=== PATIENT | female | born 1960 | race Caucasian/White ===

== ENCOUNTER 2016-07-14 08:53 | Emergency (ER) | payer OTHER ==
--- NOTE | 2016-07-14 09:33 | DIAGNOSTIC IMAGING REPORT ---
PROCEDURE: CT HEAD WITHOUT CONTRAST INDICATION: REPORTED LEFT SIDED WEAKNESS TECHNIQUE: Axial CT images were acquired through the head. Coronal and sagittal reformations were created. COMPARISON: None. FINDINGS: No intracranial hemorrhage or extraaxial fluid collections. Ventricles are normal in size, shape and position. There is no mass, mass effect or midline shift. The resendez-white matter differentiation is normal. There is no edema. The calvarium is intact. The paranasal sinuses and mastoid air cells are normally aerated. The extracranial soft tissues and orbits are normal. IMPRESSION: 1. No CT evidence of acute intracranial process. 2. Findings discussed with Dr. Garcia at 09:[address] scans at this facility use dose modulation, iterative reconstruction, and/or weight-based dosing when appropriate to reduce radiation dose to as low as reasonably achievable.
--- NOTE | 2016-07-14 10:05 | DIAGNOSTIC IMAGING REPORT ---
PROCEDURE: XR CHEST 1 VIEW INDICATION: COUGH AND LUE WEAKNESS TECHNIQUE: Portable AP view 09:14 a.m. COMPARISON: None. FINDINGS: Lungs are clear. Heart and mediastinum are normal. Thorax is normal. IMPRESSION: 1. Negative chest.
--- NOTE | 2016-07-14 12:28 | ED CLINICAL REPORT ---
Clinical Report - Physicians/Mid Levels [facility] [address] [place] [address] 07/14/2016 8:57 Patient: ESAU QUIÑONES Time Seen: 0905; initial patient contact. Arrived- By ambulance. Historian- patient. HISTORY OF PRESENT ILLNESS Chief Complaint: WEAKNESS. This started just prior to arrival and is still present (persistent). It was gradual in onset and has been constant. The patient has had weakness. No numbness, tingling, impaired speech or swallowing or visual disturbance. No recent fall. No difficulty walking. At its maximum deficit described as mild. When seen in the E.D., deficit described as mild. No dizziness, altered mental status, seizure or blackouts. Usually is alert and oriented X3 and has normal mobility. Similar symptoms previously: None. Recent medical care: Not recently seen/assessed. REVIEW OF SYSTEMS No fever, nausea or vomiting. She has had sputum production, difficulty breathing, a sore throat, a cough and neck pain. All systems otherwise negative, except as recorded above. PAST HISTORY ( COPD - Chronic Obstructive Pulmonary Disease. Depression. SURGERIES: Appendectomy. Hysterectomy. Carpal Tunnel Surgery. Breast Sugery.). SOCIAL HISTORY Current every day smoker. No alcohol use or drug use. ADDITIONAL NOTES The nursing notes have been reviewed with agreement regarding the chief complaint, PMH and patient medications and allergies. PHYSICAL EXAM Appearance: Alert. No acute distress. Head: Head atraumatic. Eyes: Pupils equal, round and reactive to light. ENT: Normal ENT inspection. Airway intact. Pharynx normal. Neck: Mild acute decrease in ROM secondary to pain. Moderate muscle spasm of the left posterior neck. Moderate soft tissue tenderness in the left upper, mid and lower neck area. No vertebral tenderness. No vertebral step-off. CVS: Normal heart rate and rhythm. Heart sounds normal. Respiratory: Mild respiratory distress with accessory muscle use and retractions. Mildly decreased air movement bilaterally. Expiratory moderate bilateral wheezes present. No rales or rhonchi. Abdomen: Soft and nontender. No organomegaly. The bowel sounds are not abnormal. Skin: Skin warm and dry. Normal skin color. No rash. Extremities: No calf tenderness. No lower extremity edema. Neuro: Alert. Oriented X 3. Mood/affect normal. Speech normal. Cranial nerves normal (as tested). No cerebellar findings. No motor deficit. No sensory deficit. LABS, X-RAYS, AND EKG EKG: EKG time: (923). Normal sinus rhythm. Rate: 89. Normal P waves. Normal KAMINI. Normal QRS complex. Normal axis. Normal ST and T waves, QT and QTc. Prior EKG unavailable. The study has been interpreted contemporaneously by me. The study has been independently viewed by me. The EKG appears to be a good tracing. Interpretation time: 09. Chest X-ray: No acute disease. Moderate hyperinflation present on the right and left with flattening of the diaphragm. Consistent with COPD. No infiltrate. Views: AP. Technique: good. The X-rays were independently viewed by me and interpreted contemporaneously by me. Prior films were not available for comparison. Interpretation time: 10:26. CT Head: (No CT evidence of acute intracranial process.). Head CT performed without contrast. Prior studies were not available for comparison. The study was interpreted by the radiologist and discussed with the radiologist. Interpretation time: 10:27. Laboratory Tests: CBC w Diff: (MYNOR: 07/14/2016 09:03) ( MsgRcvd 07/14/2016 09:10) Final results Test Result Flag Units (Reference) WHITE BLOOD COUNT 12.0 H K/uL (4.5-11.5) RED BLOOD COUNT 4.89 M/uL (4.00-5.20) HEMOGLOBIN 14.1 gm/dL (12.0-16.0) HEMATOCRIT 42.0 % (36.0-46.0) MEAN CELL VOLUME 86 fL (80-100) MEAN CORPUSCULAR HGB 29 pg (26-34) MEAN CORPUSCULAR HGB CONC 34 g/dL (31-37) RED CELL DISTRIBUTION WIDTH 14.3 % (11.6-14.8) PLATELET COUNT 289 K/uL (150-400) NEUTROPHIL % 68.3 % (50-75) LYMPH % 19.8 L % (25-40) MONO % 11.2 % (3-14) EOSINOPHIL % 0.5 % (0-4) BASOPHIL % 0.2 % (0-2) PT with INR: (MYNOR: 07/14/2016 09:03) ( MsgRcvd 07/14/2016 09:22) Final results Test Result Flag Units (Reference) INR 0.9 (0.8-1.2) Low Intensity Therapy: INR 1.5-2.0 PT range 18.5-23.1Mod.Intensity Therapy: INR 2.0-3.0 PT range 23.1-31.5High Intensity Therapy: INR 2.5-3.5 PT range 27.4-35.5High Intensity Therapy 2: INR 3.0-4.0 PT range 31.5-39.3 APTT 31 SECONDS (24-34) FIBRINOGEN 608 H mg/dL (193-455) D-DIMER QUANTITATIVE 0.47 ug/mLFEU (0.27-0.52) The primary value of this quantitative assay relates toits negative predictive value (i.e. exclusion) of pulmonaryembolism/deep vein thrombosis/DIC.Elevated levels of d-dimer may also occur with:, age, cancer, inflammation, liver disease,post-op, infection, hematoma, coronary disease, peripheralarteriopathy, bleeding disorders and thrombolytic treatment.Results should be correlated with other clinical andradiological data.Testing Methodology: Latex Immunoassay CMP: (MYNOR: 07/14/2016 09:03) ( MsgRcvd 07/14/2016 09:38) Final results Test Result Flag Units (Reference) GLUCOSE 115 H mg/dL (70-110) BUN 16 mg/dL (7-18) CREATININE 0.6 mg/dL (0.6-1.3) Estimated GFR >60 mL/min Estimated GFR- >60 mL/min Note: Persistent reduction over 3 months in eGFR<60 mL/min/1.73 m2 defines CKD. Patients with eGFR values>=60 mL/min/1.73 m2 may also have CKD if evidence ofpersistent proteinuria. Additional information may be foundat [email or web address]. SODIUM 140 mmol/L (136-145) POTASSIUM 3.7 mmol/L (3.5-5.1) CHLORIDE 101 mmol/L (98-107) CARBON DIOXIDE 28 mmol/L (21-32) CALCIUM 9.3 mg/dL (8.5-10.1) TOTAL PROTEIN 7.9 g/dL (6.4-8.2) ALBUMIN 3.6 g/dL (3.3-5.0) BILIRUBIN, TOTAL 0.3 mg/dL (0.0-1.0) ALKALINE PHOSPHATASE 134 H U/L (46-116) AST (SGOT) 13 L U/L (15-37) ALT (SGPT) 15 U/L (12-78) TROPONIN I <0.05 ng/mL (0.00-1.5) TROPONIN REFERENCE RANGE:<0.1 NEGATIVE0.1-1.5 INDETERMINANT>1.5 POSITIVE . PROGRESS AND PROCEDURES Course of Care: 12:26 07/14/16. Pt feeling markedly better. States her O2 levels stay between 88 and 90 % normally. She is followed by pulm. Disposition: Discharged home in good and improved condition. Condition: good. CLINICAL IMPRESSION Acute exacerbation of COPD. Muscle strain of the neck. INSTRUCTIONS Do not smoke. Seek medical help to quit smoking. Your Current Medications: CONTINUE TAKING THE FOLLOWING MEDICATIONS: Albuterol Sulfate HFA Inhalation. Symbicort Inhalation. Tudorza Pressair Inhalation. Venlafaxine HCl Oral : 225 mg daily. Prescription Medications: Albuterol 0.083% Inhalation Solution: inhale 1 unit dose (3 mL) via nebulizer every 4 hours as needed for wheezing, difficulty breathing or shortness of breath. Dispense fifty (50) units. No refill. Levaquin 500 mg: take 1 tab orally every day for 4 days. No refills. Substitution is permissible. (Start on 07/15/16) Baclofen 10 mg: take 1 orally every 8 hours. Dispense twenty (20). No refills. Prednisone 20 mg: take 2 orally every day for 4 days. Dispense sufficient quantity. No refills. (Start on 07/15/16) Follow-up: Follow up with your doctor in about two days. Call for an appointment. Screening today revealed the patient's blood pressure to be in the normal range. (Electronically signed by Woodrow Garcia Dr. 07/14/2016 12:31)
--- NOTE | 2016-07-14 12:28 | ED NURSING NOTES ---
Clinical Report - Nurses [facility] [address] [place] [address] 07/14/2016 8:57 Patient: ESAU QUIÑONES TRIAGE Triage time 08:59. Acuity: LEVEL 3. Chief Complaint: WEAKNESS. 08:59 07/14/16. 08:59 07/14/16. Alert. No acute distress. ( Left arm weakness, pt states she has has had left neck pain. Pts states that pt has had a "cold" and possible flu exposure.). SEPSIS SCREEN: Sepsis Screen. Negative (no infection suspected/documented). DANN COMA SCORE: [place] Coma Scale: 15- eyes open spontaneously (4); best verbal response- oriented x 4 (5); best motor response- obeys commands (6). --09:22 Sidney Spivey R.N. 09:00 07/14/16. BP: 118/93. HR: 100. RR: 18. O2 saturation: 92% on room air. Temp: 98 F (oral). Pain level now: 01/24. --09:22 Sidney Spivey R.N. Weight: 59.1 kg measured. --08:59 Sidney Spivey R.N.. Height/Length: 61 inches Measured. BMI: 24.6. --08:57 Sidney Spivey R.N. Medications Symbicort Inhalation. --09:18 Sidney Spivey R.N. Albuterol Sulfate HFA Inhalation. --09:18 Sidney Spivey R.N. Tudorza Pressair Inhalation. --09:49 Sidney Spivey R.N. Venlafaxine HCl Oral 225 mg, daily. --09:50 Sidney Spivey R.N. Medication/allergy information source: the patient. --09:22 Sidney Spivey R.N. Allergies None. --09:18 Sidney Spivey R.N. History Arrived by private vehicle. Historian: patient. Accompanied by family. Primary physician (CAROLINE). ( Left arm Weakness). 08:59 07/14/16. This started today. Onset. (0530). She has had a headache and weakness of the left arm. No recent fall, impaired speech or trouble walking. 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 PAST MEDICAL HX: Immunizations: up-to-date. SOCIAL HX: Current every day light tobacco smoker (cigarette)- less than 1/2 a pack per day. No alcohol use or drug use. No infectious disease exposure. ABUSE ASSESSMENT: No report of abuse. FALL RISK ASSESSMENT: Fall risk assessment completed. No fall risk identified. NUTRITIONAL RISK ASSESSMENT: The nutritional risk assessment revealed no deficiencies. FUNCTIONAL ASSESSMENT: Functional assessment: no impairments noted. LEARNING NEEDS ASSESSMENT: The learning needs assessment revealed no barriers. SKIN INTEGRITY ASSESSMENT: Skin integrity risk assessment completed. No skin integrity risk identified. --09:22 Sidney Spivey R.N. PROBLEMS: COPD - Chronic Obstructive Pulmonary Disease. --09:10 Sidney Spivey R.N. Depression. --09:51 Sidney Spivey R.N. ADDITIONAL SURGERIES: Appendectomy. Hysterectomy. --09:19 Sidney Spivey R.N. Carpal Tunnel Surgery. --09:19 Sidney Spivey R.N. Breast Sugery. --09:21 Sidney Spivey R.N. Assessment 08:59 07/14/16. --09:22 Sidney Spivey R.N. Interventions 08:59 07/14/16. 08:59 07/14/16. ID and allergy band on patient. To treatment room. --09:22 Sidney Spivey R.N. PHYSICAL ASSESSMENT late entry -09:00. GENERAL / NEURO / PSYCH: NIH Stroke Scale: score 0. 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 Level of Consciousness: alert (0). LOC Questions: both (0). LOC Commands: both (0). Best gaze: normal (0). Visual field loss: none (0). Facial palsy: normal (0). Motor arm: no drift right arm (0) and no drift left arm (0). Motor leg: no drift right leg (0) and no drift left leg (0). Limb ataxia: none (0). Sensory loss: none (0). Aphasia: none (0). Dysarthria: normal (0). Extinction and inattention: none (0). --09:15 Sidney Spivey R.N. late entry -09:05. To room via wheelchair. GENERAL / NEURO / PSYCH: Awake. Oriented X 4. Alert. Appears in no acute distress. [place] Coma Scale: 15- eyes open spontaneously (4); best verbal response- oriented x 4 (5); best motor response- obeys commands (6). Speech normal. Mood/affect normal. ( Slight left talent sourcing specialist weakness compared to right talent sourcing specialist). RESPIRATORY: Respirations not labored. SKIN: Skin is warm and dry. --09:11 Sidney Spivey R.N. 09:11 07/14/16. Baseline functional status: usually alert, oriented x4 and cooperative. Verbal response: usually clear and appropriate. --09:11 Sidney Spivey R.N. NURSING PROGRESS NOTES 08:59 07/14/2016 Site #1 started via IV in the right antecubital space with an 18g angiocath, with aseptic technique and good blood return. Blood drawn: rainbow set. Labeled in the presence of the patient and sent to the lab. Saline lock flushed with 10 mL saline (by Yebhi). --09:09 Sidney Spivey R.N. 09:02 07/14/16. ( Pt to CT). --09:02 Sidney Spivey R.N. 09:00. The plan of care for this patient has been created. Monitoring of patient in place. Patient gowned. Head of bed elevated. Reassurance given. Two patient identifiers checked. Call light placed in reach. Side rails up x 2. Bed placed in lowest position. Brakes of bed on. Brakes of chair on. --09:12 Sidney Spivey R.N. 09:12 07/14/16. ( at bedside). --09:12 Sidney Spivey R.N. 09:12 07/14/16. Family informed about reason for wait and about plan of care. --09:12 Sidney Spivey R.N. 09:16 07/14/16. Patient returned from CT by stretcher with tech. (X-ray completed in radiology department). --09:16 Sidney Spivey R.N. 09:20 07/14/16. Finger stick glucose: 112 mg/dL; ordered; performed by nurse. --09:20 Sidney Spivey R.N. 09:23 07/14/16. EKG time: (923). EKG was ordered, performed by a tech and shown to the ED physician. --09:23 Sidney Spivey R.N. 09:26 07/14/16. Cardiac rhythm: sinus tachycardia; (101). --09:26 Sidney Spivey R.N. 09:36 07/14/2016 Duoneb (Ipratropium-Albuterol) Neb [place] 1 unit dose given. Given by the respiratory therapist. --09:36 Rene Whittaker 09:43 07/14/2016 Levaquin (Levofloxacin) PO 500 mg given. Allergies verified and confirmed 5 rights. --09:48 Sidney Spivey R.N. 09:43 07/14/2016 Prednisone PO 40 mg given. Allergies verified and confirmed 5 rights. --09:48 Sidney Spivey R.N. 09:49 07/14/16. Cardiac rhythm: normal sinus rhythm. --09:49 Sidney Spivey R.N. 09:48 07/14/16. BP: 133/88. HR: 98. RR: 16. O2 saturation: 93% on room air. --09:49 Sindey Spivey R.N. 10:18 07/14/2016 Valium (Diazepam) IVP 2.5 mg given over 2 minute(s) via site #1. Allergies verified, confirmed 5 rights and sedative warning given to the patient. IV patency established. IV site checked: no pain, redness, or swelling. IV flushed thoroughly pre- and post-medication administration. IVP given by RN. --10:18 Sidney Spivey R.N. 10:07/14/16. Patient and family informed about reason for wait and about plan of care. --10:31 Sidney Spivye R.N. 10:07/14/16. Reassessment after medication administered. She reports no complaints, she is calm and she has had no adverse reaction. Overall patient status is improved- she states feels better. --10:31 Sidney Spivey R.N. 10:58 07/14/2016 Valium (Diazepam) IVP 2.5 mg given over 2 minute(s) via site #1. Allergies verified, confirmed 5 rights and sedative warning given to the patient. IV patency established. IV site checked: no pain, redness, or swelling. IV flushed thoroughly pre- and post-medication administration. IVP given by RN. --10:58 Sidney Spivey R.N. 10:58 07/14/16. BP: 130/75. HR: 100. RR: 18. O2 saturation: 91% on room air. --10:59 Sidney Spivey R.N. 10:59 07/14/16. --10:59 Sidney Spivey R.N. 10:59 07/14/16. Cardiac rhythm: sinus tachycardia. --10:59 Sidney Spivey R.N. 10:59 07/14/16. Patient and family informed about reason for wait and about plan of care. --10:59 Sidney Spivey R.N. 10:59 07/14/16. Patient waiting for lab results and disposition. --10:59 Sidney Spivey R.N. <<[facility] ENTRY-- 11:40 07/14/2016 Duoneb (Ipratropium-Albuterol) Neb TX Nebulizer 1 unit dose given. Given by the nurse. Allergies verified and confirmed 5 rights. --11:42 Cher Escamilla R.N. --END STRIKE>> Other. --11:42 Cher Escamilla R.N. 11:40 07/14/2016 Duoneb (Ipratropium-Albuterol) Neb TX Nebulizer 1 unit dose given. Given by the nurse. Allergies verified and confirmed 5 rights. (see previous entry (this is a duplicate)). --11:42 Cher Escamilla R.N. 11:41 07/14/2016 Duoneb (Ipratropium-Albuterol) Neb TX Nebulizer 1 unit dose given. Given by the nurse. Allergies verified and confirmed 5 rights. --11:41 Cher Escamilla R.N. 12:15 07/14/16. Cardiac rhythm: sinus tachycardia. --12:15 Sidney Spivey R.N. 12:15 07/14/16. BP: 100/79. HR: 100 (regular). RR: 20. O2 saturation: 90% on room air. --12:15 Sidney Spivey R.N. 12:15 07/14/16. Patient and family informed about reason for wait and about plan of care. Patient waiting for disposition and (Monitoring oxygen sats). --12:15 Sidney Sipvey R.N. DISPOSITION / DISCHARGE 12:35 07/14/2016 Site #1 removed upon discharge. Catheter intact. Bandage applied. --12:45 Lucía Urban R.N. Departure time: 1235. ( MD notified of discharge vs including spO2.). No learning barriers present. Discharge instructions provided and reviewed with the patient. Reviewed medication(s) side effects, precautions, dosing and course information. Prescription(s) given to the patient. Patient verbalized understanding. Written instructions provided in [place]. The patient was discharged by the physician. She was discharged home and accompanied by spouse. She left the Emergency Department ambulatory and via private vehicle. Spouse driving. --12:46 Lucía Urban R.N. 12:44 07/14/16. BP: 118/68. HR: 98. RR: 13. O2 saturation: 89% on room air. Temp: 98.1 F. Pain level now 4/10. --12:46 Lucía Urban R.N. Locked/Released at 07/14/2016 19:18 by Sidney Spivey R.N.
--- NOTE | 2016-07-14 12:28 | ED NURSING NOTES ---
Clinical Report - Nurs[facility] [address] [place] [address] 07/14/2016 8:57 Patient: ESAU QUIÑONES TRIAGE Triage time 08:59. Acuity: LEVEL 3. Chief Complaint: WEAKNESS. 08:59 07/14/16. 08:59 07/14/16. Alert. No acute distress. ( Left arm weakness, pt states she has has had left neck pain. Pts states that pt has had a "cold" and possible flu exposure.). SEPSIS SCREEN: Sepsis Screen. Negative (no infection suspected/documented). DANN COMA SCORE: [place] Coma Scale: 15- eyes open spontaneously (4); best verbal response- oriented x 4 (5); best motor response- obeys commands (6). --09:22 Sidney Spivey R.N. 09:00 07/14/16. BP: 118/93. HR: 100. RR: 18. O2 saturation: 92% on room air. Temp: 98 F (oral). Pain level now: 01/24. --09:22 Sidney Spivey R.N. Weight: 59.1 kg measured. --08:59 Sidney Spivey R.N.. Height/Length: 61 inches Measured. BMI: 24.6. --08:57 Sidney Spivey R.N. Medications Symbicort Inhalation. --09:18 Sidney Spivey R.N. Albuterol Sulfate HFA Inhalation. --09:18 Sidney Spivey R.N. Tudorza Pressair Inhalation. --09:49 Sidney Spivey R.N. Venlafaxine HCl Oral 225 mg, daily. --09:50 Sidney Spivey R.N. Medication/allergy information source: the patient. --09:22 Sidney Spivey R.N. Allergies None. --09:18 Sidney Spivey R.N. History Arrived by private vehicle. Historian: patient. Accompanied by family. Primary physician (CAROLINE). ( Left arm Weakness). 08:59 07/14/16. This started today. Onset. (0530). She has had a headache and weakness of the left arm. No recent fall, impaired speech or trouble walking. 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 PAST MEDICAL HX: Immunizations: up-to-date. SOCIAL HX: Current every day light tobacco smoker (cigarette)- less than 1/2 a pack per day. No alcohol use or drug use. No infectious disease exposure. ABUSE ASSESSMENT: No report of abuse. FALL RISK ASSESSMENT: Fall risk assessment completed. No fall risk identified. NUTRITIONAL RISK ASSESSMENT: The nutritional risk assessment revealed no deficiencies. FUNCTIONAL ASSESSMENT: Functional assessment: no impairments noted. LEARNING NEEDS ASSESSMENT: The learning needs assessment revealed no barriers. SKIN INTEGRITY ASSESSMENT: Skin integrity risk assessment completed. No skin integrity risk identified. --09:22 Sidney Spivey R.N. PROBLEMS: COPD - Chronic Obstructive Pulmonary Disease. --09:10 Sidney Spivey R.N. Depression. --09:51 Sidney Spivey R.N. ADDITIONAL SURGERIES: Appendectomy. Hysterectomy. --09:19 Sidney Spivey R.N. Carpal Tunnel Surgery. --09:19 Sidney Spivey R.N. Breast Sugery. --09:21 Sidney Spivey R.N. Assessment 08:59 07/14/16. --09:22 Sidney Spivey R.N. Interventions 08:59 07/14/16. 08:59 07/14/16. ID and allergy band on patient. To treatment room. --09:22 Sidney Spivey R.N. PHYSICAL ASSESSMENT late entry -09:00. GENERAL / NEURO / PSYCH: NIH Stroke Scale: score 0. only noticeable finding was slight left blood bank coordinator weakness compared to right hand blood bank coordinator. Level of Consciousness: alert (0). LOC Questions: both (0). LOC Commands: both (0). Best gaze: normal (0). Visual field loss: none (0). Facial palsy: normal (0). Motor arm: no drift right arm (0) and no drift left arm (0). Motor leg: no drift right leg (0) and no drift left leg (0). Limb ataxia: none (0). Sensory loss: none (0). Aphasia: none (0). Dysarthria: normal (0). Extinction and inattention: none (0). --09:15 Sidney Spivey R.N. late entry -09:05. To room via wheelchair. GENERAL / NEURO / PSYCH: Awake. Oriented X 4. Alert. Appears in no acute distress. [place] Coma Scale: 15- eyes open spontaneously (4); best verbal response- oriented x 4 (5); best motor response- obeys commands (6). Speech normal. Mood/affect normal. ( Slight left blood bank coordinator weakness compared to right blood bank coordinator). RESPIRATORY: Respirations not labored. SKIN: Skin is warm and dry. --09:11 Sidney Spivey R.N. 09:11 07/14/16. Baseline functional status: usually alert, oriented x4 and cooperative. Verbal response: usually clear and appropriate. --09:11 Sidney Spivey R.N. NURSING PROGRESS NOTES 08:59 07/14/2016 Site #1 started via IV in the right antecubital space with an 18g angiocath, with aseptic technique and good blood return. Blood drawn: rainbow set. Labeled in the presence of the patient and sent to the lab. Saline lock flushed with 10 mL saline (by Gaopeng). --09:09 Sidney Spivey R.N. 09:02 07/14/16. ( Pt to CT). --09:02 Sidney Spivey R.N. 09:00. The plan of care for this patient has been created. Monitoring of patient in place. Patient gowned. Head of bed elevated. Reassurance given. Two patient identifiers checked. Call light placed in reach. Side rails up x 2. Bed placed in lowest position. Brakes of bed on. Brakes of chair on. --09:12 Sidney Spivey R.N. 09:12 07/14/16. ( at bedside). --09:12 Sidney Spivey R.N. 09:12 07/14/16. Family informed about reason for wait and about plan of care. --09:12 Sidney Spivey R.N. 09:16 07/14/16. Patient returned from CT by stretcher with tech. (X-ray completed in radiology department). --09:16 Sidney Spivey R.N. 09:20 07/14/16. Finger stick glucose: 112 mg/dL; ordered; performed by nurse. --09:20 Sidney Spivey R.N. 09:23 07/14/16. EKG time: (923). EKG was ordered, performed by a tech and shown to the ED physician. --09:23 Sidney Spivey R.N. 09:26 07/14/16. Cardiac rhythm: sinus tachycardia; (101). --09:26 Sidney Spivey R.N. 09:36 07/14/2016 Duoneb (Ipratropium-Albuterol) Neb TX 1 unit dose given. Given by the respiratory therapist. --09:36 Rene Whittaker 09:43 07/14/2016 Levaquin (Levofloxacin) PO 500 mg given. Allergies verified and confirmed 5 rights. --09:48 Sidney Spivey R.N. 09:43 07/14/2016 Prednisone PO 40 mg given. Allergies verified and confirmed 5 rights. --09:48 Sidney Spivey R.N. 09:49 07/14/16. Cardiac rhythm: normal sinus rhythm. --09:49 Sidney Spivey R.N. 09:48 07/14/16. BP: 133/88. HR: 98. RR: 16. O2 saturation: 93% on room air. --09:49 Sidney Spivey R.N. 10:18 07/14/2016 Valium (Diazepam) IVP 2.5 mg given over 2 minute(s) via site #1. Allergies verified, confirmed 5 rights and sedative warning given to the patient. IV patency established. IV site checked: no pain, redness, or swelling. IV flushed thoroughly pre- and post-medication administration. IVP given by RN. --10:18 Sidney Spivey R.N. 10:07/14/16. Patient and family informed about reason for wait and about plan of care. --10:31 Sidney Spivey R.N. 10:07/14/16. Reassessment after medication administered. She reports no complaints, she is calm and she has had no adverse reaction. Overall patient status is improved- she states feels better. --10:31 Sidney Spivey R.N. 10:58 07/14/2016 Valium (Diazepam) IVP 2.5 mg given over 2 minute(s) via site #1. Allergies verified, confirmed 5 rights and sedative warning given to the patient. IV patency established. IV site checked: no pain, redness, or swelling. IV flushed thoroughly pre- and post-medication administration. IVP given by RN. --10:58 Sidney Spivey R.N. 10:58 07/14/16. BP: 130/75. HR: 100. RR: 18. O2 saturation: 91% on room air. --10:59 Sidney Spivey R.N. 10:59 07/14/16. --10:59 Sidney Spivey R.N. 10:59 07/14/16. Cardiac rhythm: sinus tachycardia. --10:59 Sidney Spivey R.N. 10:59 07/14/16. Patient and family informed about reason for wait and about plan of care. --10:59 Sidney Spivey R.N. 10:59 07/14/16. Patient waiting for lab results and disposition. --10:59 Sidney Spivey R.N. <<[facility]-- 11:40 07/14/2016 Duoneb (Ipratropium-Albuterol) Neb TX Nebulizer 1 unit dose given. Given by the nurse. Allergies verified and confirmed 5 rights. --11:42 Cher Escamilla R.N. --END STRIKE>> Other. --11:42 Cher Escamilla R.N. 11:40 07/14/2016 Duoneb (Ipratropium-Albuterol) Neb TX Nebulizer 1 unit dose given. Given by the nurse. Allergies verified and confirmed 5 rights. (see previous entry (this is a duplicate)). --11:42 Cher Escamilla R.N. 11:41 07/14/2016 Duoneb (Ipratropium-Albuterol) Neb TX Nebulizer 1 unit dose given. Given by the nurse. Allergies verified and confirmed 5 rights. --11:41 Cher Escamilla R.N. 12:15 07/14/16. Cardiac rhythm: sinus tachycardia. --12:15 Sidney Spivey R.N. 12:15 07/14/16. BP: 100/79. HR: 100 (regular). RR: 20. O2 saturation: 90% on room air. --12:15 Sidney Spivey R.N. 12:15 07/14/16. Patient and family informed about reason for wait and about plan of care. Patient waiting for disposition and (Monitoring oxygen sats). --12:15 Sidney Spivey R.N. DISPOSITION / DISCHARGE 12:35 07/14/2016 Site #1 removed upon discharge. Catheter intact. Bandage applied. --12:45 Lucía Urban R.N. Departure time: 1235. ( MD notified of discharge vs including spO2.). No learning barriers present. Discharge instructions provided and reviewed with the patient. Reviewed medication(s) side effects, precautions, dosing and course information. Prescription(s) given to the patient. Patient verbalized understanding. Written instructions provided in Hungarian. The patient was discharged by the physician. She was discharged home and accompanied by spouse. She left the Emergency Department ambulatory and via private vehicle. Spouse driving. --12:46 Lucía Urban R.N. 12:44 07/14/16. BP: 118/68. HR: 98. RR: 13. O2 saturation: 89% on room air. Temp: 98.1 F. Pain level now 4/10. --12:46 Lucía Urban R.N. Locked/Released at 07/14/2016 19:18 by Sidney Spivey R.N.
--- NOTE | 2016-07-14 12:28 | ED ORDER SUMMARY ---
..... 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) (possible left upper extremity weakness) (09:01 07/14/2016 Tang Ta) (Ack 9:03 JBoardley R.N.) (Ack 9:04 CAROLEoerner) (9:23 JBoardley R.N.) Stroke Panel Stat (09:02 07/14/2016 Tang Ta) (Ack 9:03 Reymundo) (9:23 JBoardley R.N.) EKG - ER Stat (09:02 07/14/2016 Tang Ta) (Ack 9:03 CAROLEoerner) (9:23 JBoardley R.N.) NPO (09:02 07/14/2016 Tang Ta) (Ack 9:03 JBoardley R.N.) (Ack 9:04 CAROLEoerner) (9:23 JBoardley R.N.) Pulse oximeter (09:07/14/2016 Tang Ta) (Ack 9:03 JBoardley R.N.) (Ack 9:04 CAROLEoerner) (9:23 JBoardley R.N.) Chest 1V Urgent (09:02 07/14/2016 Tang Ta) (Ack 9:04 CAROLEoealena) (9:15 KHoerner) Troponin-I Urgent (09:03 07/14/2016 Tang Ta) (Ack 9:04 CAROLEoerner) (9:23 JBoardley R.N.) MEDICATION ORDERS: DuoNeb Neb Tx 1 unit dose (NOW) (09:35 07/14/2016 Savannah Ta) (9:36 Emmanuel) Levaquin PO 500 mg (NOW) (09:35 07/14/2016 Savannah Ta) (Ack 9:42 LNations ER Tech1) (9:48 JBoardlemelony R.N.) Prednisone PO 40 mg (NOW) (09:35 07/14/2016 Savannah Ta) (Ack 9:42 LNations ER Tech1) (9:48 JBoardley R.N.) DuoNeb Neb Tx 1 unit dose (NOW) (11:33 07/14/2016 Savannah Ta) (11:41 Jeanie R.N.) IV FLUIDS: IV Saline Lock (09:02 07/14/2016 Tang Ta) (Ack 9:03 JBoardley R.N.) (9:09 JBoardley R.N.) Valium IV 5 mg (HIGH ALERT MEDICATION, NOW) (10:17 07/14/2016 JBoarbre R.N. verbal order read back to Savannah Ta) (10:18 Ranjit R.N.) ORDER SHEET NOTES: [Electronically signed by Woodrow Garcia Dr. (12:31 07/14/2016)] [Electronically signed by Sidney Spivey R.N. (19:18 07/14/2016)] [Electronically locked/signed by Sidney Spivey R.N. (19:18 07/14/2016)]
--- NOTE | 2016-07-14 12:28 | ED ORDER SUMMARY ---
..... Patient: ESAU QUIÑONES OrderSheet 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) (possible left upper extremity weakness) (09:01 07/14/2016 Tang Ta) (Ack 9:03 JBoardley R.N.) (Ack 9:04 CAROLEoerner) (9:23 JBoardley R.N.) Stroke Panel Stat (09:02 07/14/2016 Tang Ta) (Ack 9:03 Reymundo) (9:23 JBoardley R.N.) EKG - ER Stat (09:02 07/14/2016 Tang Ta) (Ack 9:03 CAROLEoerner) (9:23 JBoardley R.N.) NPO (09:02 07/14/2016 Tang Ta) (Ack 9:03 JBoardley R.N.) (Ack 9:04 CAROLEoerner) (9:23 JBoardley R.N.) Pulse oximeter (09:07/14/2016 Tang Ta) (Ack 9:03 JBoardley R.N.) (Ack 9:04 CAROLEoerner) (9:23 JBoardley R.N.) Chest 1V Urgent (09:02 07/14/2016 Tang Ta) (Ack 9:04 CAROLEoealena) (9:15 KHoerner) Troponin-I Urgent (09:03 07/14/2016 Tang Ta) (Ack 9:04 CAROLEoerner) (9:23 JBoardley R.N.) MEDICATION ORDERS: DuoNeb Neb Tx 1 unit dose (NOW) (09:35 07/14/2016 Savannah Ta) (9:36 Emmanuel) Levaquin PO 500 mg (NOW) (09:35 07/14/2016 Savannah Ta) (Ack 9:42 LNations ER Tech1) (9:48 JBoardlemelony R.N.) Prednisone PO 40 mg (NOW) (09:35 07/14/2016 Savannah Ta) (Ack 9:42 LNations ER Tech1) (9:48 JBoardley R.N.) DuoNeb Neb Tx 1 unit dose (NOW) (11:33 07/14/2016 Savannah Ta) (11:41 Jeanie R.N.) IV FLUIDS: IV Saline Lock (09:02 07/14/2016 Tang Ta) (Ack 9:03 JBoardley R.N.) (9:09 JBoardley R.N.) Valium IV 5 mg (HIGH ALERT MEDICATION, NOW) (10:17 07/14/2016 JBoarbre R.N. verbal order read back to Savannah Ta) (10:18 Ranjit R.N.) ORDER SHEET NOTES: [Electronically signed by Woodrow Garcia Dr. (12:31 07/14/2016)] [Electronically signed by Sidney Spivey R.N. (19:18 07/14/2016)] [Electronically locked/signed by Sidney Spivey R.N. (19:18 07/14/2016)]
--- NOTE | 2016-07-14 19:19 | ED DISCHARGE INSTRUCTIONS ---
Patient: ESAU QUIÑONES General Instructions [facility] VisitID: [id number] [address] [place] [address] 56y, F Registration Date/Time: 07/14/2016 Acute exacerbation of COPD. Muscle strain of the neck. INSTRUCTIONS Do not smoke. Seek medical help to quit smoking. Your Current Medications: CONTINUE TAKING THE FOLLOWING MEDICATIONS: Albuterol Sulfate HFA Inhalation. Symbicort Inhalation. Tudorza Pressair Inhalation. Venlafaxine HCl Oral : 225 mg daily. Prescription Medications: Albuterol 0.083% Inhalation Solution: inhale 1 unit dose (3 mL) via nebulizer every 4 hours as needed for wheezing, difficulty breathing or shortness of breath. Dispense fifty (50) units. No refill. Levaquin 500 mg: take 1 tab orally every day for 4 days. No refills. Substitution is permissible. (Start on 07/15/16) Baclofen 10 mg: take 1 orally every 8 hours. Dispense twenty (20). No refills. Prednisone 20 mg: take 2 orally every day for 4 days. Dispense sufficient quantity. No refills. (Start on 07/15/16) Follow-up: Follow up with your doctor in about two days. Call for an appointment. Screening today revealed the patient's blood pressure to be in the normal range. ADDITIONAL INFORMATION COPD Flare Both emphysema and chronic bronchitis are forms of chronic obstructive pulmonary disease (COPD). It is most often caused by many years of smoking tobacco. Many things can make your lung disease suddenly get worse. These causes include the common cold, pneumonia, acute bronchitis, missing doses of your regular breathing medicines, or being around smoke, dust, or other air pollutants. A COPD flare may last 7 to 14 days. Your doctor may prescribe medicineto relax your airways and prevent wheezing. Your doctor may also prescribe antibiotics if he or she thinks you havea bacterial infection. Prednisone can helpease inflammation in a severe attack. Home care Here are things you can do at home: Drink lots of water or other fluids (at least 10 glasses a day) during an attack. This will loosen lung secretions and make it easier to breathe. If you have heart or kidney disease, check with your doctor before you drink extra amounts of fluids. Take prescribed medicine exactly at the times advised. If you have a hand-held inhaler or aerosol breathing medicine, don't use it more than once every 4 hours, unless your doctor tells you to. If you were givenan antibiotic or prednisone, take all of the medicine even if you are feeling better after a few days. Don't smoke. Avoid being aroundthe smoke of others. If you were given an inhaler, use it exactly as directed. If you need to use it more often than prescribed, your condition may be getting worse. Call your doctor. Follow-up care Follow up with your health care provider.If you are 65 or older or have chronic asthma or COPD, you should get a single dose of the pneumococcal vaccine and aflu shot each year. You may need a second dose of the pneumococcal vaccine if you had the first dose at a younger age. Your health care provider will let you know if you need a second dose. For all other people, the usual dose for the pneumococcal vaccine is 1 or 2 shots. Yourprovider can discuss this with you. When to seek medical care Get prompt medical attention ifany of these occur: Increased wheezing or shortness of breath Need to use your inhalers more often than usual without relief Fever of 100.4F(38C) or higher, or as directed by your health care provider Coughing up lots of dark-colored or bloody sputum (mucus) Chest pain with each breath You do not start to improve within 24 hours Neck Sprain Or Strain A sudden force that causes turning or bending of the neck (such as in a car accident) can stretch or tear muscles (strain) and ligaments (sprain) and cause neck pain. Sometimes neck pain occurs after a simple awkward movement. In either case, muscle spasm is commonly present and contributes to the pain. Unless you had a forceful physical injury (for example, a car accident or fall), X-rays are usually not ordered for the initial evaluation of neck pain. If pain continues and dose not respond to medical treatment, X-rays and other tests may be performed at a later time. Home care The following guidelines will help you care for your injury at home: You may feel more soreness and spasm the first few days after the injury. Reduce your activity level until symptoms begin to improve. When lying down, use a comfortable pillow that supports the head and keeps the spine in a neutral position. The position of the head should not be tilted forward or backward. Use ice packs (ice in a plastic bag, wrapped in a towel) to treat acute pain. Apply for 20 minutes every 24 hours during the first two days. Then, begin local heat (hot shower, hot bath or heating pad) andmassageto reduce muscle spasm. Some patients feel best alternating hot and cold treatments, or just staying with one method only. Do what feels the best to you and gives the most relief. You may use acetaminophen or ibuprofen to control pain, unless another pain medicine was prescribed.If you have chronic liver or kidney disease or ever had a stomach ulcer or GI bleeding, talk with your doctor before using these medicines. Follow-up care Follow up with your physician or this facility if your symptoms do not show signs of improvement. Physical therapy may be needed. If you had X-rays today, they didnt show any broken bones, breaks, or fractures. Sometimes fractures dont show up on the first X-ray. Bruises and sprains can sometimes hurt as much as a fracture. These injuries can take time to heal completely. If your symptoms dont improve or they get worse, talk with your doctor. You may need a repeat X-ray. When to seek medical care Get prompt medical attention if any of the following occur: Pain becomes worse or spreads into your arms Weakness or numbness in one or both arms How To Quit Smoking Smoking is one of the hardest habits to break. About half of all those who have ever smoked have been able to quit, and most of those (about 70%) who still smoke want to quit. Here are some of the best ways to stop smoking. Keep Trying: It takes most smokers about 8 tries before they are finally able to fully quit. So, the more often you try and fail, the better your chance of quitting the next time! So, don't give up! Go Cold [place]: Most ex-smokers quit cold turkey. Trying to cut back gradually doesn't seem to work as well, perhaps because it continues the smoking habit. Also, it is possible to fool yourself by inhaling more while smoking fewer cigarettes. This results in the same amount of nicotine in your body! Get Support: Support programs can make an important difference, especially for the heavy smoker. These groups offer lectures, methods to change your behavior and peer support. Call the free national Quitline for more information. 375-RTIF-EYF (884-943-8465). Low-cost or free programs are offered by many hospitals, local chapters of the [place] [employer] (516-585-8117) and the [place] (700-772-0821). Support at home is important too. Non-smokers can help by offering praise and encouragement. If the smoker fails to quit, encourage them to try again! Mpbo-Lyk-Redmrsu Medicines: For those who can't quit on their own, Nicotine Replacement Therapy (NRT) may make quitting much easier. Certain aids such as the nicotine patch, gum and lozenge are available without a prescription. However, it is best to use these under the guidance of your doctor. The skin patch provides a steady supply of nicotine to the body. Nicotine gum and lozenge gives temporary bursts of low levels of nicotine. Both methods take the edge off the craving for cigarettes. WARNING: If you feel symptoms of nicotine overdose, such as nausea, vomiting, dizziness, weakness, or fast heartbeat, stop using these and see your doctor. Prescription Medicines: After evaluating your smoking patterns and prior attempts at quitting, your doctor may offer a prescription medicine such as bupropion (Zyban, Wellbutrin), varenicline (Chantix, Champix), a niocotine inhaler or nasal spray. Each has its unique advantage and side effects which your doctor can review with you. Health Benefits Of Quitting: The benefits of quitting start right away and keep improving the longer you go without smokin minutes: blood pressure and pulse return to normal 8 hours: oxygen levels return to normal 2 days: ability to smell and taste begins to improve as damaged nerves start to regrow 2-3 weeks: circulation and lung function improves 1-9 months: decreased cough, congestion and shortness of breath; less tired 1 year: risk of heart attack decreases by half 5 years: risk of lung cancer decreases by half; risk of stroke becomes the same as a non-smoker For information about how to quit smoking, visit the following links: National Cancer [place] , Clearing the Air, Quit Smoking Today - an online booklet. http://www.smokefree.gov/pubs/clearing_the_air.pdf Smokefree.gov http://smokefree.gov/ QuitNet http://www.quitnet.com/ Albuterol Sulfate Nebulizer solution What is this medicine? ALBUTEROL (al BYOO ter ole) is a bronchodilator. It helps to open up the airways in your lungs to make it easier to breathe. This medicine is used to treat and to prevent bronchospasm. How should I use this medicine? This medicine is used in a nebulizer. Nebulizers make a liquid into an aerosol that you breathe in through your mouth or your mouth and nose into your lungs. You will be taught how to use your nebulizer. Follow the directions on your prescription label. Take your medicine at regular intervals. Do not use more often than directed. Talk to your civil drafting technician regarding the use of this medicine in children. Special care may be needed. What side effects may I notice from receiving this medicine? Side effects that you should report to your doctor or health technical healthcare consultant as soon as possible: allergic reactions like skin rash, itching or hives, swelling of the face, lips, or tongue breathing problems chest pain feeling faint or lightheaded, falls high blood pressure irregular heartbeat fever muscle cramps or weakness pain, tingling, numbness in the hands or feet vomiting Side effects that usually do not require medical attention (report to your doctor or health technical healthcare consultant if they continue or are bothersome): cough difficulty sleeping headache nervousness, trembling stomach upset stuffy or runny nose throat irritation unusual taste What may interact with this medicine? anti-infectives like chloroquine and pentamidine caffeine cisapride diuretics medicines for colds medicines for depression or emotional or psychotic conditions medicines for weight loss including some herbal products methadone some antibiotics like clarithromycin, erythromycin, levofloxacin, and linezolid some heart medicines steroid hormones like dexamethasone, cortisone, hydrocortisone theophylline thyroid hormones What if I miss a dose? If you miss a dose, use it as soon as you can. If it is almost time for your next dose, use only that dose. Do not use double or extra doses. Where should I keep my medicine? Keep out of the reach of children. Store between 2 and 25 degrees C (36 and 77 degrees F). Do not freeze. Protect from light. Throw away any unused medicine after the expiration date. Most products are kept in the foil package until time of use. Some products can be used up to 1 week after they are removed from the foil pouch. Check the instructions that come with your medicine. What should I tell my health care provider before I take this medicine? They need to know if you have any of the following conditions: diabetes heart disease or irregular heartbeat high blood pressure pheochromocytoma seizures thyroid disease an unusual or allergic reaction to albuterol, levalbuterol, sulfites, other medicines, foods, dyes, or preservatives or trying to get breast-feeding What should I watch for while using this medicine? Tell your doctor or health technical healthcare consultant if your symptoms do not improve. Do not use extra albuterol. Call your doctor right away if your asthma or bronchitis gets worse while you are using this medicine. If your mouth gets dry try chewing sugarless gum or sucking hard candy. Drink water as directed. Levofloxacin Oral tablet What is this medicine? LEVOFLOXACIN (kevin armas) is a quinolone antibiotic. It is used to treat certain kinds of bacterial infections. It will not work for colds, flu, or other viral infections. How should I use this medicine? Take this medicine by mouth with a full glass of water. Follow the directions on the prescription label. This medicine can be taken with or without food. Take your medicine at regular intervals. Do not take your medicine more often than directed. Do not skip doses or stop your medicine early even if you feel better. Do not stop taking except on your doctor's advice. A special MedGuide will be given to you by the pharmacist with each prescription and refill. Be sure to read this information carefully each time. Talk to your civil drafting technician regarding the use of this medicine in children. While this drug may be prescribed for children as young as 6 months for selected conditions, precautions do apply. What side effects may I notice from receiving this medicine? Side effects that you should report to your doctor or health technical healthcare consultant as soon as possible: -allergic reactions like skin rash or hives, swelling of the face, lips, or tongue -changes in vision -confusion, nightmares or hallucinations -difficulty breathing -irregular heartbeat, chest pain -joint, muscle or tendon pain -pain or difficulty passing urine -persistent headache with or without blurred vision -redness, blistering, peeling or loosening of the skin, including inside the mouth -seizures -unusual pain, numbness, tingling, or weakness -vaginal irritation, discharge Side effects that usually do not require medical attention (report to your doctor or health technical healthcare consultant if they continue or are bothersome): -diarrhea -dry mouth -headache -stomach upset, nausea -trouble sleeping What may interact with this medicine? Do not take this medicine with any of the following medications: - arsenic trioxide - chloroquine - droperidol - medicines for irregular heart rhythm like amiodarone, disopyramide, dofetilide, flecainide, quinidine, procainamide, sotalol - some medicines for depression or mental problems like phenothiazines, pimozide, and ziprasidone This medicine may also interact with the following medications: - amoxapine -antacids - cisapride - dairy products - didanosine (ddI) buffered tablets or powder - haloperidol - multivitamins -NSAIDS, medicines for pain and inflammation, like ibuprofen or naproxen - retinoid products like tretinoin or isotretinoin - risperidone - some other antibiotics like clarithromycin or erythromycin - sucralfate - theophylline - warfarin What if I miss a dose? If you miss a dose, take it as soon as you remember. If it is almost time for your next dose, take only that dose. Do not take double or extra doses. Where should I keep my medicine? Keep out of the reach of children. Store at room temperature between 15 and 30 degrees C (59 and 86 degrees F). Keep in a tightly closed container. Throw away any unused medicine after the expiration date. What should I tell my health care provider before I take this medicine? They need to know if you have any of these conditions: cerebral disease irregular heartbeat kidney disease seizure disorder an unusual or allergic reaction to levofloxacin, other antibiotics or medicines, foods, dyes, or preservatives or trying to get breast-feeding What should I watch for while using this medicine? Tell your doctor or health technical healthcare consultant if your symptoms do not improve or if they get worse. Drink several glasses of water a day and cut down on drinks that contain caffeine. You must not get dehydrated while taking this medicine. You may get drowsy or dizzy. Do not drive, use machinery, or do anything that needs mental alertness until you know how this medicine affects you. Do not sit or stand up quickly, especially if you are an older patient. This reduces the risk of dizzy or fainting spells. This medicine can make you more sensitive to the sun. Keep out of the sun. If you cannot avoid being in the sun, wear protective clothing and use a sunscreen. Do not use sun lamps or tanning beds/booths. Contact your doctor if you get a sunburn. If you are a diabetic monitor your blood glucose carefully. If you get an unusual reading stop taking this medicine and call your doctor right away. Do not treat diarrhea with nwbt-jet-wbfwzkk products. Contact your doctor if you have diarrhea that lasts more than 2 days or if the diarrhea is severe and watery. Avoid antacids, calcium, iron, and zinc products for 2 hours before and 2 hours after taking a dose of this medicine. Prednisone Oral tablet What is this medicine? PREDNISONE (PRED ni sone) is a corticosteroid. It is commonly used to treat inflammation of the skin, joints, lungs, and other organs. Common conditions treated include asthma, allergies, and arthritis. It is also used for other conditions, such as blood disorders and diseases of the adrenal glands. How should I use this medicine? Take this medicine by mouth with a glass of water. Follow the directions on the prescription label. Take this medicine with food. If you are taking this medicine once a day, take it in the morning. Do not take more medicine than you are told to take. Do not suddenly stop taking your medicine because you may develop a severe reaction. Your doctor will tell you how much medicine to take. If your doctor wants you to stop the medicine, the dose may be slowly lowered over time to avoid any side effects. Talk to your civil drafting technician regarding the use of this medicine in children. Special care may be needed. What side effects may I notice from receiving this medicine? Side effects that you should report to your doctor or health technical healthcare consultant as soon as possible: allergic reactions like skin rash, itching or hives, swelling of the face, lips, or tongue changes in emotions or moods changes in vision depressed mood eye pain fever or chills, cough, sore throat, pain or difficulty passing urine increased thirst swelling of ankles, feet Side effects that usually do not require medical attention (report to your doctor or health technical healthcare consultant if they continue or are bothersome): confusion, excitement, restlessness headache nausea, vomiting skin problems, acne, thin and shiny skin trouble sleeping weight gain What may interact with this medicine? Do not take this medicine with any of the following medications: metyrapone mifepristone This medicine may also interact with the following medications: aminoglutethimide amphotericin B aspirin and aspirin-like medicines barbiturates certain medicines for diabetes, like glipizide or glyburide cholestyramine cholinesterase inhibitors cyclosporine digoxin diuretics ephedrine female hormones, like estrogens and control pills isoniazid ketoconazole NSAIDS, medicines for pain and inflammation, like ibuprofen or naproxen phenytoin rifampin toxoids vaccines warfarin What if I miss a dose? If you miss a dose, take it as soon as you can. If it is almost time for your next dose, talk to your doctor or health technical healthcare consultant. You may need to miss a dose or take an extra dose. Do not take double or extra doses without advice. Where should I keep my medicine? Keep out of the reach of children. Store at room temperature between 15 and 30 degrees C (59 and 86 degrees F). Protect from light. Keep container tightly closed. Throw away any unused medicine after the expiration date. What should I tell my health care provider before I take this medicine? They need to know if you have any of these conditions: Delta's syndrome diabetes glaucoma heart disease high blood pressure infection (especially a virus infection such as chickenpox, cold sores, or herpes) kidney disease liver disease mental illness myasthenia gravis osteoporosis seizures stomach or intestine problems thyroid disease an unusual or allergic reaction to lactose, prednisone, other medicines, foods, dyes, or preservatives or trying to get breast-feeding What should I watch for while using this medicine? Visit your doctor or health technical healthcare consultant for regular checks on your progress. If you are taking this medicine over a prolonged period, carry an identification card with your name and address, the type and dose of your medicine, and your doctor's name and address. This medicine may increase your risk of getting an infection. Tell your doctor or health technical healthcare consultant if you are around anyone with measles or chickenpox, or if you develop sores or blisters that do not heal properly. If you are going to have surgery, tell your doctor or health technical healthcare consultant that you have taken this medicine within the last twelve months. Ask your doctor or health technical healthcare consultant about your diet. You may need to lower the amount of salt you eat. This medicine may affect blood sugar levels. If you have diabetes, check with your doctor or health technical healthcare consultant before you change your diet or the dose of your diabetic medicine. You have been given the following additional information: COPD Flare Neck Sprain/Strain Smoking Cessation Albuterol Sulfate Nebulizer solution Levofloxacin Oral tablet Prednisone Oral tablet (Electronically signed by Woodrow Garcia Dr. 07/14/2016 12:31)
--- NOTE | 2016-07-14 19:19 | ED MED RECONCILIATION SUMMARY ---
Patient: ESAU QUIÑONES Medication Reconciliation Report [facility] VisitID: [id number] [address] [place] [address] 56y, F Registration Date/Time: 07/14/2016 Weight: 59.1 kg Height/Length: 61 in. BMI: 24.6 ALLERGIES: None The patient's Home Medications are listed below: CONTINUE TAKING THE FOLLOWING MEDICATIONS: Albuterol Sulfate HFA Inhalation Symbicort Inhalation Tudorza Pressair Inhalation Venlafaxine HCl Oral 225 mg, daily The source(s) of the original Home Medication information: patient The following Medications were given to the patient in the Emergency Department: Duoneb [Neb Tx] Neb TX 1 unit dose, administered: 07/14/2016 9:36:00 AM Levaquin [PO] PO 500 mg, administered: 07/14/2016 9:43:00 AM Prednisone [PO] PO 40 mg, administered: 07/14/2016 9:43:00 AM Valium [IVP] IVP 2.5 mg, administered: 07/14/2016 10:18:00 AM Valium [IVP] IVP 2.5 mg, administered: 07/14/2016 10:58:00 AM Duoneb [Neb Tx] Neb TX 1 unit dose, administered: 07/14/2016 11:41:00 AM Duoneb [Neb Tx] Neb TX 1 unit dose, administered: 07/14/2016 11:40:00 AM The following Medications were prescribed to the patient: Albuterol 0.083% Inhalation Solution: inhale 1 unit dose (3 mL) via nebulizer every 4 hours as needed for wheezing, difficulty breathing or shortness of breath. Dispense fifty (50) units. No refill. -- Woodrow Garcia Dr. Levaquin 500 mg: take 1 tab orally every day for 4 days. No refills. Substitution is permissible.(Start on 07/15/16) -- Woodrow Garcia Dr. Baclofen 10 mg: take 1 orally every 8 hours. Dispense twenty (20). No refills. -- Woodrow Garcia Dr. Prednisone 20 mg: take 2 orally every day for 4 days. Dispense sufficient quantity. No refills.(Start on 07/15/16) -- Woodrow Garcia Dr.
--- NOTE | 2016-07-14 19:19 | ED DISCHARGE INSTRUCTIONS ---
Patient: ESAU QUIÑONES General Instructions [facility] VisitID: [id number] [address] [place] [address] 56y, F Registration Date/Time: 07/14/2016 Acute exacerbation of COPD. Muscle strain of the neck. INSTRUCTIONS Do not smoke. Seek medical help to quit smoking. Your Current Medications: CONTINUE TAKING THE FOLLOWING MEDICATIONS: Albuterol Sulfate HFA Inhalation. Symbicort Inhalation. Tudorza Pressair Inhalation. Venlafaxine HCl Oral : 225 mg daily. Prescription Medications: Albuterol 0.083% Inhalation Solution: inhale 1 unit dose (3 mL) via nebulizer every 4 hours as needed for wheezing, difficulty breathing or shortness of breath. Dispense fifty (50) units. No refill. Levaquin 500 mg: take 1 tab orally every day for 4 days. No refills. Substitution is permissible. (Start on 07/15/16) Baclofen 10 mg: take 1 orally every 8 hours. Dispense twenty (20). No refills. Prednisone 20 mg: take 2 orally every day for 4 days. Dispense sufficient quantity. No refills. (Start on 07/15/16) Follow-up: Follow up with your doctor in about two days. Call for an appointment. Screening today revealed the patient's blood pressure to be in the normal range. ADDITIONAL INFORMATION COPD Flare Both emphysema and chronic bronchitis are forms of chronic obstructive pulmonary disease (COPD). It is most often caused by many years of smoking tobacco. Many things can make your lung disease suddenly get worse. These causes include the common cold, pneumonia, acute bronchitis, missing doses of your regular breathing medicines, or being around smoke, dust, or other air pollutants. A COPD flare may last 7 to 14 days. Your doctor may prescribe medicineto relax your airways and prevent wheezing. Your doctor may also prescribe antibiotics if he or she thinks you havea bacterial infection. Prednisone can helpease inflammation in a severe attack. Home care Here are things you can do at home: Drink lots of water or other fluids (at least 10 glasses a day) during an attack. This will loosen lung secretions and make it easier to breathe. If you have heart or kidney disease, check with your doctor before you drink extra amounts of fluids. Take prescribed medicine exactly at the times advised. If you have a hand-held inhaler or aerosol breathing medicine, don't use it more than once every 4 hours, unless your doctor tells you to. If you were givenan antibiotic or prednisone, take all of the medicine even if you are feeling better after a few days. Don't smoke. Avoid being aroundthe smoke of others. If you were given an inhaler, use it exactly as directed. If you need to use it more often than prescribed, your condition may be getting worse. Call your doctor. Follow-up care Follow up with your health care provider.If you are 65 or older or have chronic asthma or COPD, you should get a single dose of the pneumococcal vaccine and aflu shot each year. You may need a second dose of the pneumococcal vaccine if you had the first dose at a younger age. Your health care provider will let you know if you need a second dose. For all other people, the usual dose for the pneumococcal vaccine is 1 or 2 shots. Yourprovider can discuss this with you. When to seek medical care Get prompt medical attention ifany of these occur: Increased wheezing or shortness of breath Need to use your inhalers more often than usual without relief Fever of 100.4F(38C) or higher, or as directed by your health care provider Coughing up lots of dark-colored or bloody sputum (mucus) Chest pain with each breath You do not start to improve within 24 hours Neck Sprain Or Strain A sudden force that causes turning or bending of the neck (such as in a car accident) can stretch or tear muscles (strain) and ligaments (sprain) and cause neck pain. Sometimes neck pain occurs after a simple awkward movement. In either case, muscle spasm is commonly present and contributes to the pain. Unless you had a forceful physical injury (for example, a car accident or fall), X-rays are usually not ordered for the initial evaluation of neck pain. If pain continues and dose not respond to medical treatment, X-rays and other tests may be performed at a later time. Home care The following guidelines will help you care for your injury at home: You may feel more soreness and spasm the first few days after the injury. Reduce your activity level until symptoms begin to improve. When lying down, use a comfortable pillow that supports the head and keeps the spine in a neutral position. The position of the head should not be tilted forward or backward. Use ice packs (ice in a plastic bag, wrapped in a towel) to treat acute pain. Apply for 20 minutes every 24 hours during the first two days. Then, begin local heat (hot shower, hot bath or heating pad) andmassageto reduce muscle spasm. Some patients feel best alternating hot and cold treatments, or just staying with one method only. Do what feels the best to you and gives the most relief. You may use acetaminophen or ibuprofen to control pain, unless another pain medicine was prescribed.If you have chronic liver or kidney disease or ever had a stomach ulcer or GI bleeding, talk with your doctor before using these medicines. Follow-up care Follow up with your physician or this facility if your symptoms do not show signs of improvement. Physical therapy may be needed. If you had X-rays today, they didnt show any broken bones, breaks, or fractures. Sometimes fractures dont show up on the first X-ray. Bruises and sprains can sometimes hurt as much as a fracture. These injuries can take time to heal completely. If your symptoms dont improve or they get worse, talk with your doctor. You may need a repeat X-ray. When to seek medical care Get prompt medical attention if any of the following occur: Pain becomes worse or spreads into your arms Weakness or numbness in one or both arms How To Quit Smoking Smoking is one of the hardest habits to break. About half of all those who have ever smoked have been able to quit, and most of those (about 70%) who still smoke want to quit. Here are some of the best ways to stop smoking. Keep Trying: It takes most smokers about 8 tries before they are finally able to fully quit. So, the more often you try and fail, the better your chance of quitting the next time! So, don't give up! Go Cold [place]: Most ex-smokers quit cold turkey. Trying to cut back gradually doesn't seem to work as well, perhaps because it continues the smoking habit. Also, it is possible to fool yourself by inhaling more while smoking fewer cigarettes. This results in the same amount of nicotine in your body! Get Support: Support programs can make an important difference, especially for the heavy smoker. These groups offer lectures, methods to change your behavior and peer support. Call the free national Quitline for more information. 027-ROUN-QCL (249-693-1448). Low-cost or free programs are offered by many hospitals, local chapters of the [place] [employer] (803-376-0565) and the [place] [employer] (311-399-8523). Support at home is important too. Non-smokers can help by offering praise and encouragement. If the smoker fails to quit, encourage them to try again! [id number]-[id number] Medicines: For those who can't quit on their own, Nicotine Replacement Therapy (NRT) may make quitting much easier. Certain aids such as the nicotine patch, gum and lozenge are available without a prescription. However, it is best to use these under the guidance of your doctor. The skin patch provides a steady supply of nicotine to the body. Nicotine gum and lozenge gives temporary bursts of low levels of nicotine. Both methods take the edge off the craving for cigarettes. WARNING: If you feel symptoms of nicotine overdose, such as nausea, vomiting, dizziness, weakness, or fast heartbeat, stop using these and see your doctor. Prescription Medicines: After evaluating your smoking patterns and prior attempts at quitting, your doctor may offer a prescription medicine such as bupropion (Zyban, Wellbutrin), varenicline (Chantix, Champix), a niocotine inhaler or nasal spray. Each has its unique advantage and side effects which your doctor can review with you. Health Benefits Of Quitting: The benefits of quitting start right away and keep improving the longer you go without smokin minutes: blood pressure and pulse return to normal 8 hours: oxygen levels return to normal 2 days: ability to smell and taste begins to improve as damaged nerves start to regrow 2-3 weeks: circulation and lung function improves 1-9 months: decreased cough, congestion and shortness of breath; less tired 1 year: risk of heart attack decreases by half 5 years: risk of lung cancer decreases by half; risk of stroke becomes the same as a non-smoker For information about how to quit smoking, visit the following links: National Cancer [place] , Clearing the Air, Quit Smoking Today - an online booklet. http://www.smokefree.gov/pubs/clearing_the_air.pdf Smokefree.gov http://smokefree.gov/ QuitNet http://www.quitnet.com/ Albuterol Sulfate Nebulizer solution What is this medicine? ALBUTEROL (al BYOO ter ole) is a bronchodilator. It helps to open up the airways in your lungs to make it easier to breathe. This medicine is used to treat and to prevent bronchospasm. How should I use this medicine? This medicine is used in a nebulizer. Nebulizers make a liquid into an aerosol that you breathe in through your mouth or your mouth and nose into your lungs. You will be taught how to use your nebulizer. Follow the directions on your prescription label. Take your medicine at regular intervals. Do not use more often than directed. Talk to your hazardous waste management specialist regarding the use of this medicine in children. Special care may be needed. What side effects may I notice from receiving this medicine? Side effects that you should report to your doctor or health pet care worker as soon as possible: allergic reactions like skin rash, itching or hives, swelling of the face, lips, or tongue breathing problems chest pain feeling faint or lightheaded, falls high blood pressure irregular heartbeat fever muscle cramps or weakness pain, tingling, numbness in the hands or feet vomiting Side effects that usually do not require medical attention (report to your doctor or health pet care worker if they continue or are bothersome): cough difficulty sleeping headache nervousness, trembling stomach upset stuffy or runny nose throat irritation unusual taste What may interact with this medicine? anti-infectives like chloroquine and pentamidine caffeine cisapride diuretics medicines for colds medicines for depression or emotional or psychotic conditions medicines for weight loss including some herbal products methadone some antibiotics like clarithromycin, erythromycin, levofloxacin, and linezolid some heart medicines steroid hormones like dexamethasone, cortisone, hydrocortisone theophylline thyroid hormones What if I miss a dose? If you miss a dose, use it as soon as you can. If it is almost time for your next dose, use only that dose. Do not use double or extra doses. Where should I keep my medicine? Keep out of the reach of children. Store between 2 and 25 degrees C (36 and 77 degrees F). Do not freeze. Protect from light. Throw away any unused medicine after the expiration date. Most products are kept in the foil package until time of use. Some products can be used up to 1 week after they are removed from the foil pouch. Check the instructions that come with your medicine. What should I tell my health care provider before I take this medicine? They need to know if you have any of the following conditions: diabetes heart disease or irregular heartbeat high blood pressure pheochromocytoma seizures thyroid disease an unusual or allergic reaction to albuterol, levalbuterol, sulfites, other medicines, foods, dyes, or preservatives or trying to get breast-feeding What should I watch for while using this medicine? Tell your doctor or health pet care worker if your symptoms do not improve. Do not use extra albuterol. Call your doctor right away if your asthma or bronchitis gets worse while you are using this medicine. If your mouth gets dry try chewing sugarless gum or sucking hard candy. Drink water as directed. Levofloxacin Oral tablet What is this medicine? LEVOFLOXACIN (kevin armas) is a quinolone antibiotic. It is used to treat certain kinds of bacterial infections. It will not work for colds, flu, or other viral infections. How should I use this medicine? Take this medicine by mouth with a full glass of water. Follow the directions on the prescription label. This medicine can be taken with or without food. Take your medicine at regular intervals. Do not take your medicine more often than directed. Do not skip doses or stop your medicine early even if you feel better. Do not stop taking except on your doctor's advice. A special MedGuide will be given to you by the pharmacist with each prescription and refill. Be sure to read this information carefully each time. Talk to your hazardous waste management specialist regarding the use of this medicine in children. While this drug may be prescribed for children as young as 6 months for selected conditions, precautions do apply. What side effects may I notice from receiving this medicine? Side effects that you should report to your doctor or health pet care worker as soon as possible: -allergic reactions like skin rash or hives, swelling of the face, lips, or tongue -changes in vision -confusion, nightmares or hallucinations -difficulty breathing -irregular heartbeat, chest pain -joint, muscle or tendon pain -pain or difficulty passing urine -persistent headache with or without blurred vision -redness, blistering, peeling or loosening of the skin, including inside the mouth -seizures -unusual pain, numbness, tingling, or weakness -vaginal irritation, discharge Side effects that usually do not require medical attention (report to your doctor or health pet care worker if they continue or are bothersome): -diarrhea -dry mouth -headache -stomach upset, nausea -trouble sleeping What may interact with this medicine? Do not take this medicine with any of the following medications: - arsenic trioxide - chloroquine - droperidol - medicines for irregular heart rhythm like amiodarone, disopyramide, dofetilide, flecainide, quinidine, procainamide, sotalol - some medicines for depression or mental problems like phenothiazines, pimozide, and ziprasidone This medicine may also interact with the following medications: - amoxapine -antacids - cisapride - dairy products - didanosine (ddI) buffered tablets or powder - haloperidol - multivitamins -NSAIDS, medicines for pain and inflammation, like ibuprofen or naproxen - retinoid products like tretinoin or isotretinoin - risperidone - some other antibiotics like clarithromycin or erythromycin - sucralfate - theophylline - warfarin What if I miss a dose? If you miss a dose, take it as soon as you remember. If it is almost time for your next dose, take only that dose. Do not take double or extra doses. Where should I keep my medicine? Keep out of the reach of children. Store at room temperature between 15 and 30 degrees C (59 and 86 degrees F). Keep in a tightly closed container. Throw away any unused medicine after the expiration date. What should I tell my health care provider before I take this medicine? They need to know if you have any of these conditions: cerebral disease irregular heartbeat kidney disease seizure disorder an unusual or allergic reaction to levofloxacin, other antibiotics or medicines, foods, dyes, or preservatives or trying to get breast-feeding What should I watch for while using this medicine? Tell your doctor or health pet care worker if your symptoms do not improve or if they get worse. Drink several glasses of water a day and cut down on drinks that contain caffeine. You must not get dehydrated while taking this medicine. You may get drowsy or dizzy. Do not drive, use machinery, or do anything that needs mental alertness until you know how this medicine affects you. Do not sit or stand up quickly, especially if you are an older patient. This reduces the risk of dizzy or fainting spells. This medicine can make you more sensitive to the sun. Keep out of the sun. If you cannot avoid being in the sun, wear protective clothing and use a sunscreen. Do not use sun lamps or tanning beds/booths. Contact your doctor if you get a sunburn. If you are a diabetic monitor your blood glucose carefully. If you get an unusual reading stop taking this medicine and call your doctor right away. Do not treat diarrhea with whnp-[id number] products. Contact your doctor if you have diarrhea that lasts more than 2 days or if the diarrhea is severe and watery. Avoid antacids, calcium, iron, and zinc products for 2 hours before and 2 hours after taking a dose of this medicine. Prednisone Oral tablet What is this medicine? PREDNISONE (PRED ni sone) is a corticosteroid. It is commonly used to treat inflammation of the skin, joints, lungs, and other organs. Common conditions treated include asthma, allergies, and arthritis. It is also used for other conditions, such as blood disorders and diseases of the adrenal glands. How should I use this medicine? Take this medicine by mouth with a glass of water. Follow the directions on the prescription label. Take this medicine with food. If you are taking this medicine once a day, take it in the morning. Do not take more medicine than you are told to take. Do not suddenly stop taking your medicine because you may develop a severe reaction. Your doctor will tell you how much medicine to take. If your doctor wants you to stop the medicine, the dose may be slowly lowered over time to avoid any side effects. Talk to your hazardous waste management specialist regarding the use of this medicine in children. Special care may be needed. What side effects may I notice from receiving this medicine? Side effects that you should report to your doctor or health pet care worker as soon as possible: allergic reactions like skin rash, itching or hives, swelling of the face, lips, or tongue changes in emotions or moods changes in vision depressed mood eye pain fever or chills, cough, sore throat, pain or difficulty passing urine increased thirst swelling of ankles, feet Side effects that usually do not require medical attention (report to your doctor or health pet care worker if they continue or are bothersome): confusion, excitement, restlessness headache nausea, vomiting skin problems, acne, thin and shiny skin trouble sleeping weight gain What may interact with this medicine? Do not take this medicine with any of the following medications: metyrapone mifepristone This medicine may also interact with the following medications: aminoglutethimide amphotericin B aspirin and aspirin-like medicines barbiturates certain medicines for diabetes, like glipizide or glyburide cholestyramine cholinesterase inhibitors cyclosporine digoxin diuretics ephedrine female hormones, like estrogens and control pills isoniazid ketoconazole NSAIDS, medicines for pain and inflammation, like ibuprofen or naproxen phenytoin rifampin toxoids vaccines warfarin What if I miss a dose? If you miss a dose, take it as soon as you can. If it is almost time for your next dose, talk to your doctor or health pet care worker. You may need to miss a dose or take an extra dose. Do not take double or extra doses without advice. Where should I keep my medicine? Keep out of the reach of children. Store at room temperature between 15 and 30 degrees C (59 and 86 degrees F). Protect from light. Keep container tightly closed. Throw away any unused medicine after the expiration date. What should I tell my health care provider before I take this medicine? They need to know if you have any of these conditions: [place]'s syndrome diabetes glaucoma heart disease high blood pressure infection (especially a virus infection such as chickenpox, cold sores, or herpes) kidney disease liver disease mental illness myasthenia gravis osteoporosis seizures stomach or intestine problems thyroid disease an unusual or allergic reaction to lactose, prednisone, other medicines, foods, dyes, or preservatives or trying to get breast-feeding What should I watch for while using this medicine? Visit your doctor or health pet care worker for regular checks on your progress. If you are taking this medicine over a prolonged period, carry an identification card with your name and address, the type and dose of your medicine, and your doctor's name and address. This medicine may increase your risk of getting an infection. Tell your doctor or health pet care worker if you are around anyone with measles or chickenpox, or if you develop sores or blisters that do not heal properly. If you are going to have surgery, tell your doctor or health pet care worker that you have taken this medicine within the last twelve months. Ask your doctor or health pet care worker about your diet. You may need to lower the amount of salt you eat. This medicine may affect blood sugar levels. If you have diabetes, check with your doctor or health pet care worker before you change your diet or the dose of your diabetic medicine. You have been given the following additional information: COPD Flare Neck Sprain/Strain Smoking Cessation Albuterol Sulfate Nebulizer solution Levofloxacin Oral tablet Prednisone Oral tablet (Electronically signed by Woodrow Garcia Dr. 07/14/2016 12:31)
--- NOTE | 2016-07-14 19:19 | ED MED RECONCILIATION SUMMARY ---
Patient: ESAU QUIÑONES Medication Reconciliation Report [facility] VisitID: [id number] [address] [place] [address] 56y, F Registration Date/Time: 07/14/2016 Weight: 59.1 kg Height/Length: 61 in. BMI: 24.6 ALLERGIES: None The patient's Home Medications are listed below: CONTINUE TAKING THE FOLLOWING MEDICATIONS: Albuterol Sulfate HFA Inhalation Symbicort Inhalation Tudorza Pressair Inhalation Venlafaxine HCl Oral 225 mg, daily The source(s) of the original Home Medication information: patient The following Medications were given to the patient in the Emergency Department: Duoneb [Neb Tx] Neb TX 1 unit dose, administered: 07/14/2016 9:36:00 AM Levaquin [PO] PO 500 mg, administered: 07/14/2016 9:43:00 AM Prednisone [PO] PO 40 mg, administered: 07/14/2016 9:43:00 AM Valium [IVP] IVP 2.5 mg, administered: 07/14/2016 10:18:00 AM Valium [IVP] IVP 2.5 mg, administered: 07/14/2016 10:58:00 AM Duoneb [Neb Tx] Neb TX 1 unit dose, administered: 07/14/2016 11:41:00 AM Duoneb [Neb Tx] Neb TX 1 unit dose, administered: 07/14/2016 11:40:00 AM The following Medications were prescribed to the patient: Albuterol 0.083% Inhalation Solution: inhale 1 unit dose (3 mL) via nebulizer every 4 hours as needed for wheezing, difficulty breathing or shortness of breath. Dispense fifty (50) units. No refill. -- Woodrow Garcia Dr. Levaquin 500 mg: take 1 tab orally every day for 4 days. No refills. Substitution is permissible.(Start on 07/15/16) -- Woodrow Garcia Dr. Baclofen 10 mg: take 1 orally every 8 hours. Dispense twenty (20). No refills. -- Woodrow Garcia Dr. Prednisone 20 mg: take 2 orally every day for 4 days. Dispense sufficient quantity. No refills.(Start on 07/15/16) -- Woodrow Garcia Dr.
--- NOTE | 2016-07-14 19:19 | ED MAR SUMMARY ---
..... Medication Administration Record [facility] [address] [place] [address] Patient: ESAU QUIÑONES Visit ID: [id number] 56y, F Weight: 59.1 kg Height/Length: 61 in BMI: 24.6 ALLERGIES: None Given 09:36 07/14/2016 Rene Whittaker, Medication Administered: DUONEB [NEB TX] (IPRATROPIUM-ALBUTEROL), Dose: 1 unit dose Neb TX. Medication Ordered: DuoNeb Neb Tx 1 unit dose (NOW). Given 09:07/14/2016 Sidney Spivey R.N. Medication Administered: LEVAQUIN [PO] (LEVOFLOXACIN), Dose: 500 mg PO. Medication Ordered: Levaquin PO 500 mg (NOW). Given :07/14/2016 Sidney Spivey R.N. Medication Administered: PREDNISONE [PO], Dose: 40 mg PO. Medication Ordered: Prednisone PO 40 mg (NOW). Given 10:18 07/14/2016 Sidney Spievy R.N. Medication Administered: VALIUM [IVP] (DIAZEPAM), Dose: 2.5 mg IVP over 2 minute(s), Site: #1 right AC. Medication Ordered: Valium IV 5 mg (HIGH ALERT MEDICATION, NOW). Given 10:58 07/14/2016 Sidney Spivey R.N. Medication Administered: VALIUM [IVP] (DIAZEPAM), Dose: 2.5 mg IVP over 2 minute(s), Site: #1 right AC. Medication Ordered: Valium IV 5 mg (HIGH ALERT MEDICATION, NOW). Given 11:40 07/14/2016 Cher Escamilla R.N. Medication Administered: DUONEB [NEB TX] (IPRATROPIUM-ALBUTEROL), Dose: 1 unit dose Nebulizer Neb TX. Medication Ordered: DuoNeb Neb Tx 1 unit dose (NOW). Given 11:41 07/14/2016 Cher Ecsamilla R.N. Medication Administered: DUONEB [NEB TX] (IPRATROPIUM-ALBUTEROL), Dose: 1 unit dose Nebulizer Neb TX. Medication Ordered: DuoNeb Neb Tx 1 unit dose (NOW).
--- NOTE | 2016-07-14 19:19 | ED MAR SUMMARY ---
..... Medication Administration Record [facility] [address] [place] [address] Patient: ESAU QUIÑONES Visit ID: [id number] 56y, F Weight: 59.1 kg Height/Length: 61 in BMI: 24.6 ALLERGIES: None Given 09:36 07/14/2016 Rene Whittaker, Medication Administered: DUONEB [NEB TX] (IPRATROPIUM-ALBUTEROL), Dose: 1 unit dose Neb TX. Medication Ordered: DuoNeb Neb Tx 1 unit dose (NOW). Given 09:07/14/2016 Sidney pSivey R.N. Medication Administered: LEVAQUIN [PO] (LEVOFLOXACIN), Dose: 500 mg PO. Medication Ordered: Levaquin PO 500 mg (NOW). Given :07/14/2016 Sidney Spivey R.N. Medication Administered: PREDNISONE [PO], Dose: 40 mg PO. Medication Ordered: Prednisone PO 40 mg (NOW). Given 10:18 07/14/2016 Sidney Spivey R.N. Medication Administered: VALIUM [IVP] (DIAZEPAM), Dose: 2.5 mg IVP over 2 minute(s), Site: #1 right AC. Medication Ordered: Valium IV 5 mg (HIGH ALERT MEDICATION, NOW). Given 10:58 07/14/2016 Sidney Spivey R.N. Medication Administered: VALIUM [IVP] (DIAZEPAM), Dose: 2.5 mg IVP over 2 minute(s), Site: #1 right AC. Medication Ordered: Valium IV 5 mg (HIGH ALERT MEDICATION, NOW). Given 11:40 07/14/2016 Cher Escamilla R.N. Medication Administered: DUONEB [NEB TX] (IPRATROPIUM-ALBUTEROL), Dose: 1 unit dose Nebulizer Neb TX. Medication Ordered: DuoNeb Neb Tx 1 unit dose (NOW). Given 11:41 07/14/2016 Cher Escamilla R.N. Medication Administered: DUONEB [NEB TX] (IPRATROPIUM-ALBUTEROL), Dose: 1 unit dose Nebulizer Neb TX. Medication Ordered: DuoNeb Neb Tx 1 unit dose (NOW).
== END 2016-07-14 12:35 | disposition home or self-care (01) ==
LOC: ED SRH 08:53
DX: J44.9 Chronic obstructive pulmonary disease, unspecified (principal); S16.1XXA Strain of muscle, fascia and tendon at neck level, initial encounter; X58.XXXA Exposure to other specified factors, initial encounter; Y93.9 Activity, unspecified; Y92.9 Unspecified place or not applicable; Y99.9 Unspecified external cause status; F17.210 Nicotine dependence, cigarettes, uncomplicated; Z79.899 Other long term (current) drug therapy
CPT/HCPCS: 90100; 90616; 91556; 94001; 94050; 94060; 95059